=== PATIENT | female | born 1945 | race Caucasian/White ===

== ENCOUNTER 2016-05-01 12:30 | Emergency (ER) | payer MEDICARE, MEDICAID ==
[2016-05-01 13:03] VITALS: TEMP 98.3; BMI 43.1
[2016-05-01 13:31] LABS: AUTOMATED EOSINOPHIL 2.6 % (0-5); AUTOMATED LYMPH 19.9 % (17-44); AUTOMATED MONOCYTE 10.3 % (3-10); AUTOMATED NEUTROPHIL 66.2 % (45-76); MPV 7.6 fL (7.4-10.4)
[2016-05-01 13:40] LABS: BLOOD UREA NITROGEN 23 MG/DL (7-17); CALCIUM 9.2 MG/DL (8.4-10.2); CALCULATED OSMOLALITY 274 MOs/Kg (270-290); CHLORIDE 106 mEq/L (98-107); CPK TOTAL WITH POSSIBLE MB 44 IU/L (30-134); GLUCOSE 125 MG/DL (70-99); SODIUM LEVEL 140 mEq/L (137-146); TOTAL PROTEIN 7.2 G/DL (6.3-8.2)
[2016-05-01 13:47] LABS: PARTIAL THROMB. TIME 26.9 SEC (22-35)
--- NOTE | 2016-05-01 14:17 | DIRPT ---
CLINICAL DATA: Headache 2 weeks radiating to between shoulder blades and chest. Nausea without vomiting today. EXAM: CT HEAD WITHOUT CONTRAST TECHNIQUE: Contiguous axial images were obtained from the base of the skull through the vertex without intravenous contrast. COMPARISON: 08/11/2014 FINDINGS: Ventricles, cisterns and other CSF spaces are within normal. There is subtle chronic ischemic microvascular disease. Possible old lacunar infarct over the left lentiform nucleus. No evidence of focal mass, mass effect, shift of midline structures or acute hemorrhage. No evidence of acute infarction. Remaining bones and soft tissues are within normal. IMPRESSION: No acute intracranial findings. Minimal chronic ischemic microvascular disease. 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 Electronically Signed By: Carl Foote M.D. On: 05/01/2016 14:14
[2016-05-01] MEDS ORDERED: MORPHINE 4 MG/ML INJECTION IV ONE (14:53)
[2016-05-01] MEDS ORDERED: ONDANSETRON HCL 4 MG/2 ML VIAL IV ONE (14:53)
--- NOTE | 2016-05-01 14:56 | EDPRACDOC ---
- General Information Mode Of Arrival: Car - History of Present Illness Onset: 2 WEEKS HPI: Pt c/o headache, neck pain, L shoulder pain x 2-3 weeks with blurred vision, nausea. Denies fever, earache, sore throat, congestion, cough, cp, sob, abd pain , vomiting, changes in bowel or bladder, rash. Location: Reports: Generalized Pain Quality: Reports: Moderate, Aching Modifying Factors: worse with: Medication, Exposure to light, Cold therapy, Immobilization, Movement, Rest Relevant History of: Reports: Hypertension Associated Signs and Symptoms: Reports: Frequent Headaches, Nausea/Vomiting, Vision Changes <Loretta Knutson - Last Filed: 05/01/16 15:59> <Mcihell Pitt - Last Filed: 05/01/16 17:10> - General Information Chief Complaint: Headache Stated Complaint: NECK/HEAD PAIN Time Seen by Provider: 05/01/16 14:46 Home Medications: Home Medications Docusate Sodium [Stool Softener] 100 mg PO DAILY PRN 09/03/13 Lisinopril/Hydrochlorothiazide [Lisinopril-Hctz 20-25 mg Tab] 1 tab PO DAILY Metoprolol Tartrate 12.5 mg PO BID 09/03/13 Aspirin (OrangeEnteric Coated) [Ecotrin] 325 mg PO DAILY 08/11/14 Allopurinol 300 mg PO DAILY 05/01/16 Diazepam [Valium] 5 mg PO BID #10 tablet 05/01/16 Hydrocodone/Acetaminophen [Lortab 5-325 mg Tablet] 1 each PO Q4H PRN #15 tablet 05/01/16 Hydroxyurea [Hydrea] 500 mg PO DAILY 05/01/16 Ibuprofen Tablet [Motrin] 800 mg PO Q8H PRN 05/01/16 Lansoprazole 30 mg PO DAILY 05/01/16 Allergies/Adverse Reactions: Allergies Allergy/AdvReac Type Severity Reaction Status Date / Time codeine Allergy Nausea/Vomi Verified 08/11/14 14:41 ting cortisone [Cortisone] Allergy Difficulty Verified 08/11/14 14:41 Breathing ED Past Medical History - History Reviewed Yes Nurses notes reviewed and agree except as marked - Patient Medical History Neurological History: Reports: Seizures Cardiac History: Reports: Hypertension, Heart Attack, Cardiac Catheterization Musculoskeletal History: Reports: Arthritis Systemic History: Denies: Cancer Surgical History: Reports: Cardiac Catheterization - Social Medical History Smoking Status: Never smoker ETOH: None Substance Abuse: None <Loretta Knutson - Last Filed: 05/01/16 15:59> EDM Review of Systems - Review of Systems Constitutional: No Symptoms Reported. negative: Fever, Chills, Weakness, Fatigue, Loss of Appetite Eyes: Blurred Vision Ears: No Symptoms Reported. negative: Pain, Hearing Loss, Drainage, Ear Pulling Throat: No Symptoms Reported. negative: Pain, Swelling Nose: No Symptoms Reported. negative: Congestion, Bleeding, Discharge, Injection, Swelling, Deformity, Ecchymosis, Tender, Abrasion, Laceration Mouth: No Symptoms Reported. negative: Pain, Drooling Respiratory: No Symptoms Reported. negative: Cough, Brassy Cough, Barky Cough, Shortness of Breath, Wheezing, Hemoptysis Cardiovascular: No Symptoms Reported. negative: Chest Pain, Palpitations, Syncope, Edema, Orthopnea, PND, Skin Mottling, Cyanosis Gastrointestinal: Nausea Genitourinary: No Symptoms Reported. negative: Dysuria, Hematuria, Frequency, Discharge, Bleeding, Testicular Pain, Neurological: Headache Musculoskeletal: Neck, Shoulder Integumentary: No Symptoms Reported. negative: Itching, Rash, Bruising, Wound Allergic/Immunologic: No Symptoms Reported. negative: Hives, Itching Hematologic: No Symptoms Reported. negative: Lymphadenopathy, Easy Bruising, Easy Bleeding Psychiatric: No Symptoms Reported. negative: Anxiety, Depression, Hallucinations, Insomnia, Suicidal <Loretta Knutson - Last Filed: 05/01/16 15:59> - Physical Exam Constitutional: Alert Oriented to: Time, Person, Place Last recorded Vital Signs: Last Vital Signs Temp 98.3 F 05/01/16 12:53 Pulse 66 05/01/16 12:53 Resp 18 05/01/16 12:53 BP 166/74 05/01/16 12:53 Pulse Ox 94 05/01/16 12:53 Oxygen Pulse Oxygen Saturation 94 O2 Device Room Air Oxygen Flow Rate Fraction of Inspired Oxygen ( FIO2) - HEENT Head: Normal ( normocephalic) Eye Exam: Normal (PERRL, EOMI, Sclera white) Oropharynx: Normal (Pharynx:Moist without exudate,Gums-no swelling) Tympanic Membrane: Normal ENT EAC: Normal TMJ: Normal Nose: No Symptoms Reported (septum midline) Neck: Normal (FROM, trachea at midline), Paraspinal Tenderness (L) - Respiratory/Cardiovascular Respiratory: Normal - CTA (BBS clear to auscultation without adventitious sounds ) Cardiovascular: Normal (RRR without murmur, gallop or rub) - GI Auscultation: Normal (NABS) Palpation: Normal (Soft,No rebound or guarding, non distended) Tenderness: Non tender - Musculoskeletal Back: Normal (Non-Tender) Extremities: Normal (Normal tone, Pulses 2+ No cyanosis or edema, FROM) - Integumentary Skin: Normal, Warm, Dry Lymphatics: Normal (no adenopathy) - Neurologic Memory Impaired: Normal Motor Function: Normal (Normal tone, Pulses 2+ No cyanosis or edema, FROM) Cranial Nerve: Normal (CN II-X11 intact sensation, strength 5/5) Cerebellar: Normal Mood Description: Normal Perception: Normal <Loretta Knutson - Last Filed: 05/01/16 15:59> - Physical Exam Last recorded Vital Signs: Last Vital Signs Temp 98.3 F 05/01/16 12:53 Pulse 71 05/01/16 14:41 Resp 20 05/01/16 14:41 BP 175/74 05/01/16 14:41 Pulse Ox 94 05/01/16 14:41 Oxygen Pulse Oxygen Saturation 94 O2 Device Room Air Oxygen Flow Rate Fraction of Inspired Oxygen ( FIO2) <Michell Pitt - Last Filed: 05/01/16 17:10> - Differential Diagnosis Migraine, Hypertensive, Muscular Contraction, Acute Benign Cephalgia, Other ( cervical radiculopathy) - Results 05/01/16 13:14 05/01/16 13:14 WBC 7.7 xk/uL (3.8-10.8) 05/01/16 13:14 RBC 4.51 xM/uL (4.20-5.40) 05/01/16 13:14 Hgb 13.9 g/dL (12.0-16.0) 05/01/16 13:14 Hct 41.6 % (36-47) 05/01/16 13:14 MCV 92 fL (81-99) 05/01/16 13:14 MCH 30.8 pg (27-32) 05/01/16 13:14 MCHC 33.4 g/dl (33-36) 05/01/16 13:14 RDW 15.1 % (11.5-14.5) H 05/01/16 13:14 Plt Count 662 xk/uL (130-400) H 05/01/16 13:14 MPV 7.6 fL (7.4-10.4) 05/01/16 13:14 Neut % (Auto) 66.2 % (45-76) 05/01/16 13:14 Lymph % (Auto) 19.9 % (17-44) 05/01/16 13:14 [place] % (Auto) 10.3 % (3-10) H 05/01/16 13:14 Eos % (Auto) 2.6 % (0-5) 05/01/16 13:14 Baso % (Auto) 1.0 % (0-2) 05/01/16 13:14 Absolute Neuts (auto) 5.08 xk/uL (1.7-8.2) 05/01/16 13:14 Absolute Lymphs (auto) 1.46 xk/uL (0.65-4.75) 05/01/16 13:14 PT 10.7 SEC (9.2-11.2) 05/01/16 13:14 INR 1.0 05/01/16 13:14 APTT 26.9 SEC (22-35) 05/01/16 13:14 Sodium 140 mEq/L (137-146) 05/01/16 13:14 Potassium 3.8 mEq/L (3.5-5.1) 05/01/16 13:14 Chloride 106 mEq/L (98-107) 05/01/16 13:14 Carbon Dioxide 24 mMOL/L (22-33) 05/01/16 13:14 Anion Gap 14 mEq/L (8-16) 05/01/16 13:14 BUN 23 MG/DL (7-17) H 05/01/16 13:14 Creatinine 0.60 MG/DL (0.52-1.04) 05/01/16 13:14 Estimated GFR (MDRD) > 60 mL/min (>=60) 05/01/16 13:14 Glucose 125 MG/DL (70-99) H 05/01/16 13:14 Calculated Osmolality 274 MOs/Kg (270-290) 05/01/16 13:14 Calcium 9.2 MG/DL (8.4-10.2) 05/01/16 13:14 Total Bilirubin 0.6 MG/DL (0.2-1.3) 05/01/16 13:14 AST 35 IU/L (14-36) 05/01/16 13:14 ALT 34 IU/L (9-52) 05/01/16 13:14 Alkaline Phosphatase 76 IU/L (55-165) 05/01/16 13:14 Creatine Kinase 44 IU/L (30-134) 05/01/16 13:14 Troponin I < 0.01 ng/mL (<.04) 05/01/16 13:14 Unm-B-Wtdxmknjscn Pept 333 pg/mL (0-900) 05/01/16 13:14 Total Protein 7.2 G/DL (6.3-8.2) 05/01/16 13:14 Albumin 4.1 G/DL (3.5-5.0) 05/01/16 13:14 Lab Results 05/01/16 05/01/16 05/01/16 13:14 13:14 13:14 WBC 7.7 RBC 4.51 Hgb 13.9 Hct 41.6 MCV 92 MCH 30.8 MCHC 33.4 RDW 15.1 H Plt Count 662 H MPV 7.6 Neut % (Auto) 66.2 Lymph % (Auto) 19.9 [place] % (Auto) 10.3 H Eos % (Auto) 2.6 Baso % (Auto) 1.0 Absolute Neuts (auto) 5.08 Absolute Lymphs (auto) 1.46 PT 10.7 INR 1.0 APTT 26.9 Sodium 140 Potassium 3.8 Chloride 106 Carbon Dioxide 24 Anion Gap 14 BUN 23 H Creatinine 0.60 Estimated GFR (MDRD) > 60 Glucose 125 H Calculated Osmolality 274 Calcium 9.2 Total Bilirubin 0.6 AST 35 ALT 34 Alkaline Phosphatase 76 Creatine Kinase 44 Troponin I < 0.01 Bna-L-Dhkhynhrvnf Pept 333 Total Protein 7.2 Albumin 4.1 - EKG EKG #1 EKG Time: 13:04 Rate: bpm: 49 [place]: LAD Rhythm: Afib Block: None ST: Nonsp - Diagnostic Imaging Head Image interpreted by: Radiologist IMPRESSION: No acute intracranial findings. Minimal chronic ischemic microvascular disease. 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 C-spine Image interpreted by: Radiologist IMPRESSION: No acute osseous abnormality in the cervical spine. Chest Image interpreted by: Radiologist IMPRESSION: No acute cardiopulmonary abnormality. <Loretta Knutson Ruben - Last Filed: 05/01/16 15:59> - Re-evaluation Re-evaluation 1 Re-evaluation Time: 17:09 (IMPROVED. A LITTLE PAIN TO LEFT PARASPINAL MUSCLES) - Results 05/01/16 13:14 05/01/16 13:14 WBC 7.7 xk/uL (3.8-10.8) 05/01/16 13:14 RBC 4.51 xM/uL (4.20-5.40) 05/01/16 13:14 Hgb 13.9 g/dL (12.0-16.0) 05/01/16 13:14 Hct 41.6 % (36-47) 05/01/16 13:14 MCV 92 fL (81-99) 05/01/16 13:14 MCH 30.8 pg (27-32) 05/01/16 13:14 MCHC 33.4 g/dl (33-36) 05/01/16 13:14 RDW 15.1 % (11.5-14.5) H 05/01/16 13:14 Plt Count 662 xk/uL (130-400) H 05/01/16 13:14 MPV 7.6 fL (7.4-10.4) 05/01/16 13:14 Neut % (Auto) 66.2 % (45-76) 05/01/16 13:14 Lymph % (Auto) 19.9 % (17-44) 05/01/16 13:14 [place] % (Auto) 10.3 % (3-10) H 05/01/16 13:14 Eos % (Auto) 2.6 % (0-5) 05/01/16 13:14 Baso % (Auto) 1.0 % (0-2) 05/01/16 13:14 Absolute Neuts (auto) 5.08 xk/uL (1.7-8.2) 05/01/16 13:14 Absolute Lymphs (auto) 1.46 xk/uL (0.65-4.75) 05/01/16 13:14 PT 10.7 SEC (9.2-11.2) 05/01/16 13:14 INR 1.0 05/01/16 13:14 APTT 26.9 SEC (22-35) 05/01/16 13:14 Sodium 140 mEq/L (137-146) 05/01/16 13:14 Potassium 3.8 mEq/L (3.5-5.1) 05/01/16 13:14 Chloride 106 mEq/L (98-107) 05/01/16 13:14 Carbon Dioxide 24 mMOL/L (22-33) 05/01/16 13:14 Anion Gap 14 mEq/L (8-16) 05/01/16 13:14 BUN 23 MG/DL (7-17) H 05/01/16 13:14 Creatinine 0.60 MG/DL (0.52-1.04) 05/01/16 13:14 Estimated GFR (MDRD) > 60 mL/min (>=60) 05/01/16 13:14 Glucose 125 MG/DL (70-99) H 05/01/16 13:14 Calculated Osmolality 274 MOs/Kg (270-290) 05/01/16 13:14 Calcium 9.2 MG/DL (8.4-10.2) 05/01/16 13:14 Total Bilirubin 0.6 MG/DL (0.2-1.3) 05/01/16 13:14 AST 35 IU/L (14-36) 05/01/16 13:14 ALT 34 IU/L (9-52) 05/01/16 13:14 Alkaline Phosphatase 76 IU/L (55-165) 05/01/16 13:14 Creatine Kinase 47 IU/L (30-134) 05/01/16 15:47 Troponin I < 0.01 ng/mL (<.04) 05/01/16 15:47 Ejf-B-Tibxjlypbeo Pept 333 pg/mL (0-900) 05/01/16 13:14 Total Protein 7.2 G/DL (6.3-8.2) 05/01/16 13:14 Albumin 4.1 G/DL (3.5-5.0) 05/01/16 13:14 Lab Results 05/01/16 05/01/16 05/01/16 15:47 13:14 13:14 WBC 7.7 RBC 4.51 Hgb 13.9 Hct 41.6 MCV 92 MCH 30.8 MCHC 33.4 RDW 15.1 H Plt Count 662 H MPV 7.6 Neut % (Auto) 66.2 Lymph % (Auto) 19.9 [place] % (Auto) 10.3 H Eos % (Auto) 2.6 Baso % (Auto) 1.0 Absolute Neuts (auto) 5.08 Absolute Lymphs (auto) 1.46 PT 10.7 INR 1.0 APTT 26.9 Sodium Potassium Chloride Carbon Dioxide Anion Gap BUN Creatinine Estimated GFR (MDRD) Glucose Calculated Osmolality Calcium Total Bilirubin AST ALT Alkaline Phosphatase Creatine Kinase 47 Troponin I < 0.01 Idu-G-Ulotkmxyzyk Pept Total Protein Albumin 05/01/16 13:14 WBC RBC Hgb Hct MCV MCH MCHC RDW Plt Count MPV Neut % (Auto) Lymph % (Auto) [place] % (Auto) Eos % (Auto) Baso % (Auto) Absolute Neuts (auto) Absolute Lymphs (auto) PT INR APTT Sodium 140 Potassium 3.8 Chloride 106 Carbon Dioxide 24 Anion Gap 14 BUN 23 H Creatinine 0.60 Estimated GFR (MDRD) > 60 Glucose 125 H Calculated Osmolality 274 Calcium 9.2 Total Bilirubin 0.6 AST 35 ALT 34 Alkaline Phosphatase 76 Creatine Kinase 44 Troponin I < 0.01 Ivm-M-Xzywjbgxzec Pept 333 Total Protein 7.2 Albumin 4.1 <Michell Pitt - Last Filed: 05/01/16 17:10> <Loretta Knutson - Last Filed: 05/01/16 15:59> Decision Time to Discharge: 17:09 - Departure Yes I personally saw and evaluated the patient. Disposition: Home Education/Counseling Given To: Patient Education/Counseling Given Regarding: Diagnosis, Treatment, Follow Up <Michell Pitt - Last Filed: 05/01/16 17:10> - Departure Condition: Fair Final Diagnosis: Headache, Cervical strain, Hypertension Instructions: Chronic Hypertension (ED), Cervical Strain (ED) Prescriptions: Diazepam [Valium] 5 mg PO BID #10 tablet Hydrocodone/Acetaminophen [Lortab 5-325 mg Tablet] 1 each PO Q4H PRN #15 tablet PRN Reason: Pain Additional Instructions: TAKE BP MEDS DIRECTED
--- NOTE | 2016-05-01 15:51 | DIRPT ---
CLINICAL DATA: 70-year-old female with chest pain radiating to the left shoulder and neck. Blurred vision and nausea. Headache. Initial encounter. EXAM: CHEST 2 VIEW COMPARISON: Chest CTA 04/28/2016 and earlier. FINDINGS: Large body habitus. Stable lung volumes. Stable mild cardiomegaly. Other mediastinal contours are within normal limits. Visualized tracheal air column is within normal limits. The lungs remain clear. No pneumothorax or effusion. No acute osseous abnormality identified. IMPRESSION: No acute cardiopulmonary abnormality. Electronically Signed By: Zoë Macdonald M.D. On: 05/01/2016 15:49
--- NOTE | 2016-05-01 15:53 | DIRPT ---
CLINICAL DATA: 70-year-old female with pain radiating to the left neck and shoulder. Headache. Nausea. Initial encounter. EXAM: CERVICAL SPINE - COMPLETE 4+ VIEW COMPARISON: Cervical spine MRI 02/04/2016. FINDINGS: Stable cervical lordosis. Normal prevertebral soft tissue contour. Chronic disc space loss and endplate spurring at C6-C7. Bilateral posterior element alignment is within normal limits. Normal AP alignment. Negative lung apices. Bilateral cervical carotid calcified atherosclerosis. C1-C2 alignment and odontoid within normal limits. IMPRESSION: No acute osseous abnormality in the cervical spine. Electronically Signed By: Zoë Macdonald M.D. On: 05/01/2016 15:50
[2016-05-01 16:11] LABS: CPK TOTAL WITH POSSIBLE MB 47 IU/L (30-134)
[2016-05-01 17:56] VITALS: BP 132/75; PULSE 75
== END 2016-05-01 17:54 | disposition home or self-care (01) ==
LOC: ED 12:30
DX: R51 Headache (principal); S16.1XXA Strain of muscle, fascia and tendon at neck level, initial encounter; X58.XXXA Exposure to other specified factors, initial encounter; I10 Essential (primary) hypertension; Z79.899 Other long term (current) drug therapy
CPT/HCPCS: 36415; 70450; 71020; 72050; 80053; 82550; 83880; 84484; 85025; 85610; 85730; 93005; 96374; 96375; 99285; J2270; J2405